=== PATIENT | male | born 1955 | race Caucasian/White ===

== ENCOUNTER 2016-10-16 19:48 | Emergency (ER) | payer OTHER ==
[~2016-10-16] VITALS: Ht 160 cm; Wt 54.4 kg
[~2016-10-16 19:48] MED LIST: ACET650T GT; BETHANECHOL GT; CALC GT; CALC1POW; DOCU-67 GT; LACT1TAB26 GT; LEVE1000 GT; MOM GT; OMEP20EC6 GT; SYN.1 GT; VIT D GT; VIT.C GT; ZOS3.375PM IV; [UNRECOGNIZED DRUG - CODE] GT; [UNRECOGNIZED DRUG - CODE] IV
[2016-10-16 19:53] VITALS: BP 163/110
--- NOTE | 2016-10-16 19:55 | NUR ---
PT BIB PARAMEDICS DUE TO TRACH COMING OUT AT [facility], PT GIVEN 100% FIO2 VIA BAG AND MASK BY PARAMEDICS. PT AWAKE, NEW PORTEX #[address] RAUSCH WITHOUT COMPLICATIONS, GOOD COLOR CHANGE NOTED ON EZ CAP, BILATERAL CLEAR BREATH SOUNDS AUSCULATED. PT GIVEN 100% FIO2 BY RT, PT SATURATION 99%, UNTIL PLACED ON VENT WITH FOLLOWING VENT SETTINGS AC 12, VT 450, FIO2 50%, PEEP 5. NO DISTRESS/SOB/WHEEZING NOTED. PT SUCTIONED SMALL AMT THIN PINK TINGED SECRETIONS. NO ADVERSE EFFECTS NOTED. VENT ALARMS ON AND AUDIBLE. VENT PLUGGED INTO RED ELECTRICAL OUTLET. AMBU BAG AT [facility]. WILL CONTINUE TO MONITOR.
--- NOTE | 2016-10-16 20:00 | NUR ---
BIBA C/O TRACHE CAME OUT, BLEEDING . CAME IN BAGGING, WITH G TUBE, GRAHAM CATHETER.
[2016-10-16 20:15] VITALS: BP 196/134
[2016-10-16] MEDS ORDERED: [UNRECOGNIZED DRUG - CODE] GT (20:23)
[2016-10-16] MEDS ORDERED: CRAN450C GT (20:23)
[2016-10-16] MEDS ORDERED: DOCU250S72 GT (20:23)
[2016-10-16 21:15] VITALS: BP 108/64
--- NOTE | 2016-10-16 21:19 | NUR ---
VENT CHECKED. PT AWAKE, BREATH SOUNDS CLEAR BILATERALLY, PT SUCTIONED FOR SM AMT PINK TINGED SECRETIONS. QUIANA RN AWARE OF SPUTUM SAMPLE OBTAINED. NO ADVERSE EFFECTS NOTED.
--- NOTE | 2016-10-16 22:15 | NUR ---
PT IN RESTING IN BED. NO SOB NOTED AT THIS TIME. WILL CONTINUE TO MONITOR.
--- NOTE | 2016-10-16 23:25 | NUR ---
Patient discharged with v/s stable. Written and verbal after care instructions given and explained. Patient alert, oriented and verbalized understanding of instructions. Ambulance [place] [facility] [facility] All questions addressed prior to discharge. ID band removed. Patient advised to follow up with PMD. NO Rx WERE given. Patient educated on indication of medication including possible reaction and side effects. Opportunity to ask questions provided and answered. REPORT GIVEN TO YAMILE MARTIN [facility]
[2016-10-16 23:26] VITALS: BP 111/82
== END 2016-10-16 23:26 ==
LOC: MED 19:48
DX: Z43.0 Encounter for attention to tracheostomy (principal); J45.909 Unspecified asthma, uncomplicated; Z86.73 Personal history of transient ischemic attack (TIA), and cerebral infarction without residual deficits
CPT/HCPCS: 31500; 71010; 99284; Q0092

== ENCOUNTER 2016-10-22 15:33 | Inpatient (IN) | payer OTHER ==
[2016-10-22] VITALS (7 sets, daily range): BP systolic 91–138; BP diastolic 55–79
[~2016-10-22] VITALS: Ht 149.9 cm; Wt 64.0 kg
[~2016-10-22 15:33] MED LIST changes: +CRAN450C GT; +DOCU250S72 GT; +[UNRECOGNIZED DRUG - CODE] GT
--- NOTE | 2016-10-22 15:34 | NUR ---
Patient was BIBA and taken to bed 04 via gurney per EMS.
--- NOTE | 2016-10-22 15:35 | NUR ---
RT at bedside. Dr. Moraes at bedside to evaluate patient.
--- NOTE | 2016-10-22 15:40 | NUR ---
FROM [facility]. TRYING TO CHANGE TRACH FROM [facility] AND HAD DIFFICULTY. BAGGING PATIENT FROM FACILITY TO ER.ERMD AT BEDSIDE.MONITORED.RT AT BEDSIDE BAGGING PATIENT. GTUBE,SUPRAPUBIC CATH. TO DRAINAGE.LOWER EXTREMIRIES CONTRACTED.HX: SEIZURE,CHRONIC RESP.,DOWN SYNDROME; HALF-WAY FACILITY TRIED TO CHANGE TRACH FROM PORTEX 7 TO SHILEY EXTRA LONG 6 BUT WAS UNABLE
[2016-10-22] MEDS ORDERED: LIDOCAINE/PRILOCAINE 2.5% 30 GM TUBE TP ONE (15:45)
--- NOTE | 2016-10-22 15:46 | NUR ---
XRAY AT BEDSIDE
--- NOTE | 2016-10-22 16:00 | NUR ---
DR SYLVESTER REPLACED TRACH WITH SHILEY EXTRA LONG SIZE 7.0, PLACED ON VENT BY RT JOSETTE, VENT SETTINGS AC RATE 12, TIDAL VOLUME 400 FI02 50%, PEEP +5, BLOOD GAS DRAWN BY RT, SPUTUM SPECIMEN SEND TO LAB
[2016-10-22] MEDS ORDERED: LIDOCAINE JELLY 2% 30 ML TUBE TP ONE (16:05)
--- NOTE | 2016-10-22 16:05 | NUR ---
RECEIVED PT BEING BMV GAUZE OVER STOMA BY EMS PER FACILITY RT CAHNGING TRACH UNABLE TO REINSERT NEW TRACH XLT SHILEY [address] BETHEA WITHOUT INCIDENT CXR ORDERED PT IS ALSO VENT DEPENDENT PER FACILITY PLACED ON CARESCAPE ON A/C 12 VT 400 PEEP 5 FIO2 50 ALARMS ARE ON FUNCTIONAL BMV HOB PTS TRACH SHILEY 7 XLT IS SECURE BS RHONCI COMMISSIONING MANAGER OBTAINED VIA TRACH PT IN HF QUIET
--- NOTE | 2016-10-22 16:08 | NUR ---
XRAY at bedside for a repeat.
[2016-10-22] MEDS ORDERED: [UNRECOGNIZED DRUG - CODE] GT (16:27)
[2016-10-22] MEDS ORDERED: OMEP20TC24 GT (16:27)
[2016-10-22] MEDS ORDERED: CALC650T90 GT (16:27)
[2016-10-22] MEDS ORDERED: SYN.075 GT (16:27)
[2016-10-22] MEDS ORDERED: KEP500L GT (16:27)
[2016-10-22 16:35] LABS: BLOOD GAS BASE EXCESS -0.1 mmol/L (-2.0-2.0); BLOOD GAS HCO3 25.6 mmol/L; BLOOD GAS PCO2 45.7 mmHg (20-50); BLOOD GAS PH 7.366 (7.35-7.45); BLOOD GAS PO2 160.4 mmHg
[2016-10-22 16:36] LABS: BLOOD GAS O2 SAT% 99.1 % (92.0-98.5)
--- NOTE | 2016-10-22 16:41 | NUR ---
ABG DRAWN ON RB WITHOUT INCIDENT AND RESULTS GIVEN TO DR. KEY AND FIO2 WAS CHANGED TO 30% BY RT Romeo GONZALEZ
[2016-10-22 16:44] LABS: BASOPHILS # (AUTO) 0.1 K/uL (0.00-0.22); EOSINOPHILS # (AUTO) 0.1 K/uL (0-0.4); EOSINOPHILS % (AUTO) 1.5 % (0.0-4.0); HEMATOCRIT 41.2 % (36-52); HEMOGLOBIN 13.6 g/dL (12.0-18.0); LYMPHOCYTES % (AUTO) 10.9 % (20.5-51.1); MEAN CORPUSCULAR HEMOGLOBIN 31 pg (27-31); MEAN CORPUSCULAR HGB CONC 33 g/dL (33-37); MEAN CORPUSCULAR VOLUME 94 fL (80-94); MONOCYTES # (AUTO) 0.5 K/uL (0.8-1.0); MONOCYTES % (AUTO) 5.3 % (1.7-9.3); NEUTROPHILS # (AUTO) 7.6 K/uL (1.8-7.7); NEUTROPHILS % (AUTO) 81.3 % (42.2-75.2); PLATELET COUNT (AUTO) 611 K/uL (140-450); RED BLOOD CELL COUNT(AUTO) 4.36 MIL/uL (4.20-6.10); RED CELL DISTRIBUTION WIDTH 14.2 % (11.6-13.7); WHITE BLOOD COUNT (AUTO) 9.3 K/uL (4.8-10.8)
[2016-10-22 16:55] LABS: ANION GAP 9.4 (8-16); CALCIUM 8.3 mg/dL (8.5-10.1); CARBON DIOXIDE 29.7 mmol/L (21-32); CREATININE 1.1 mg/dL (0.6-1.3); POTASSIUM 4.1 mmol/L (3.5-5.1)
[2016-10-22 17:00] LABS: BILIRUBIN,URINE NEGATIVE (NEGATIVE); BLOOD, URINE 1+ (NEGATIVE); LEUKOCYTE ESTERASE ,URINE 3+ (NEGATIVE); NITRITE, URINE POSITIVE (NEGATIVE); PROTEIN,URINE TRACE (NEGATIVE); UGLUCOSE NEGATIVE (NEGATIVE); UROBILINOGEN,URINE 0.2 EU/dL (0.2 - 1)
[2016-10-22 17:01] LABS: ALBUMIN 2.6 g/dL (3.4-5.0); TOTAL BILIRUBIN 0.3 mg/dL (0.0-1.0); TOTAL PROTEIN, SERUM 7.8 g/dL (6.4-8.2)
[2016-10-22 17:01] LABS: APPEARANCE,URINE CLOUDY (CLEAR); COLOR,URINE STRAW (YELLOW)
[2016-10-22 17:11] LABS: BACTERIA,URINE 3+ /HPF (None Seen); RBC,URINE NONE SEEN /HPF (0-5); SQUAMOUS EPITHELIAL CELL,UR RARE /LPF (0-3 (FEW)); WBC,URINE TOO MANY TO COUNT /HPF (0-5)
--- NOTE | 2016-10-22 17:16 | NUR ---
VENT CHECK BS RHONCI I\L LAVAGE AND SX LG BLOODY CXR DISCUSSED WITH DR KEY
--- NOTE | 2016-10-22 17:30 | NUR ---
PICTURES TAKEN OF RIGHT GROIN BY THOMAS ROSE
--- NOTE | 2016-10-22 17:35 | NUR ---
DR BLACKMAN AT BEDSIDE ASSESSING THE PT FOR ADMISSION
[2016-10-22] MEDS ORDERED: HYDROcodone/APAP 5/325 MG 1 TAB TAB GT PRN (18:05)
[2016-10-22] MEDS ORDERED: ACETAMINOPHEN 325 MG TAB GT PRN (18:05)
[2016-10-22] MEDS ORDERED: ONDANSETRON 4 MG/2 ML VIAL IVP PRN (18:05)
[2016-10-22 18:28] LABS: CHOL/HDL RATIO 5.1 (1-4.5)
[2016-10-22 18:38] LABS: FREE T4 (FREE THYROXINE) 1.46 ng/dL (0.76-1.46); THYROID STIMULATING HORMONE 1.49 uIU/mL (0.34-3.76)
--- NOTE | 2016-10-22 19:12 | NUR ---
REPORT GIVEN TO GRETA
--- NOTE | 2016-10-22 19:39 | NUR ---
RECEIVED PT STABLE ON VENT SUPPORT AT DOCUMENTED SETTINGS. TRANSFERRED PT TO ICU4 WITH BALA OVALLE. TOLERATED WELL. 7 SHILEY XLT SECURED/PATENT/MIDLINE. HME CHANGED. NO RESP DISTRESS OR SOB NOTED. BREATHE SOUNDS CLEAR BILATERALLY. BVM BEDSIDE, ALARMS AUDIBLE, VENT PLUGGED INTO RED OUTLET. WILL CONTINUE TO MONITOR.
--- NOTE | 2016-10-22 19:40 | NUR ---
RECEIVED PATIENT FROM ER VIA GURNEY. PATIENT IS TRACH TO VENT WITH SETTINGS OF FIO2 OF 30%, TIDAL VOLUME 400, A/C 12, AND PEEP OF 5. BREATH SOUNDS ARE CLEAR UPON AUSCULTATION. NO SIGNS OF RESPIRATORY DISTRESS OR SOB NOTED. BOWEL SOUNDS ARE PRESENT. THERE IS A G-TUBE IN PLACE. THERE IS A #20 IN THE LEFT HAND SALINE LOCK. THERE IS A SUPRAPUBIC CATHETER IN PLACE WITH MODERATE AMOUNT OF YELLOW CLOUDY URINE NOTED IN GRAHAM BAG DRAINING TO GRAVITY. ORIENTED PATIENT TO SURROUNDINGS AND EXPLAINED PLAN OF CARE TO INCLUDE VITALS Q2H, REPOSITIONING Q2H, AND SCHEDULED MEDICATION ADMINISTRATION. PATIENT HAS HX OF DOWN SYNDROME AND CVA. UNABLE TO ASSESS IF PATIENT COMPREHENDED TEACHING. REINFORCEMENT IS NEEDED. PATIENT REPOSITIONED FOR COMFORT TO OFFLOAD PRESSURE AREAS. HOB AT 30 DEGREES WITH BED IN LOW POSITION. WILL CONTINUE TO MONITOR PATIENT.
[2016-10-22] MEDS: NACL 0.9% 1,000 ML IV SCH (20:00)
--- NOTE | 2016-10-22 20:19 | NUR ---
#20 GAUGE IN LEFT HAND INFILTRATED. NEW IV INSERTED IN RIGHT FOREARM #20 BY CHARGE NURSE FRANCISCO OVALLE. SITE IS DRY, INTACT, AND PATENT. CONTINUE TO MONITOR.
--- NOTE | 2016-10-22 20:25 | NUR ---
DR. MARTINEZ ON UNIT TO SEE PATIENT.
[2016-10-22] MEDS: BETHANECHOL 5 MG TAB GT SCH (21:00)
--- NOTE | 2016-10-22 21:30 | NUR ---
RESPIRATORY THERAPIST VICKI AT BEDSIDE TO SUCTION PATIENT. MINIMAL AMOUNT OF SPUTUM NOTED. NO SIGNS OF SOB NOTED. HOB AT 30 DEGREES WITH BED IN LOW POSITION. CONTINUE TO MONITOR PATIENT.
[2016-10-22] MEDS ORDERED: PIPERACILLIN/TAZOBACTAM 3.375 GM VIAL IV ONE (22:25)
[2016-10-22] MEDS ORDERED: BETHANECHOL 25 MG TAB ONE (22:38)
[2016-10-22] MEDS ORDERED: levETIRAcetam 100 MG/ML ORASYR ONE (22:39)
[2016-10-22] MEDS: levETIRAcetam 100 MG/ML ORASYR GT SCH (22:48)
[2016-10-22] MEDS ORDERED: THEOPHYLLINE 80 MG/15 ML ONE (22:52)
--- NOTE | 2016-10-22 22:54 | NUR ---
ADMINISTERED SCHEDULED 2100 AT THIS TIME DUE TO MEDICATIONS ARE NOT AVAILABLE ON UNIT AND OMID ALAN RN WAS NOTIFIED. TOLERATED SCHEDULED MEDICATIONS. NO SIGNS OF SOB OR DISCOMFORT NOTED. HOB AT 30 DEGREES WITH BED IN LOW POSITION. CONTINUE TO MONITOR PATIENT.
[2016-10-22] MEDS: THEOPHYLLINE 80 MG/15 ML GT SCH (23:02)
[2016-10-23] VITALS (24 sets, daily range): BP systolic 90–128; BP diastolic 44–83
[2016-10-23] MEDS: PIPER/TAZO 3.375GM/D5W PREMIX 50 ML IV SCH ×5 (00:08→23:41)
--- NOTE | 2016-10-23 01:12 | NUR ---
PATIENT REPOSITIONED FOR COMFORT. NO S/S OF SOB OR RESPIRATORY DISTRESS NOTED. HOB AT 30 DEGREES WITH BED IN LOW POSITION. CONTINUE TO MONITOR.
[2016-10-23] MEDS: MORPHINE SULFATE 2 MG/ML SYR IVP PRN (01:14)
--- NOTE | 2016-10-23 02:48 | NUR ---
PATIENT REPOSITIONED FOR COMFORT. NO SIGNS OF RESPIRATORY DISTRESS NOTED. HOB AT 30 DEGREES WITH BED IN LOW POSITION. CONTINUE TO MONITOR PATIENT.
--- NOTE | 2016-10-23 04:54 | NUR ---
SCDS IN PLACE FOR VTE PROPHYLAXIS.
[2016-10-23 04:59] LABS: BASOPHILS # (AUTO) 0.2 K/uL (0.00-0.22); EOSINOPHILS # (AUTO) 0.1 K/uL (0-0.4); EOSINOPHILS % (AUTO) 1.4 % (0.0-4.0); HEMATOCRIT 38.6 % (36-52); HEMOGLOBIN 12.4 g/dL (12.0-18.0); LYMPHOCYTES # (AUTO) 1.7 K/uL (2.0-11.5); LYMPHOCYTES % (AUTO) 27.9 % (20.5-51.1); MEAN CORPUSCULAR HEMOGLOBIN 31 pg (27-31); MEAN CORPUSCULAR HGB CONC 32 g/dL (33-37); MEAN CORPUSCULAR VOLUME 96 fL (80-94); MONOCYTES # (AUTO) 0.5 K/uL (0.8-1.0); MONOCYTES % (AUTO) 7.7 % (1.7-9.3); NEUTROPHILS # (AUTO) 3.6 K/uL (1.8-7.7); PLATELET COUNT (AUTO) 549 K/uL (140-450); RED BLOOD CELL COUNT(AUTO) 4.02 MIL/uL (4.20-6.10); RED CELL DISTRIBUTION WIDTH 14.3 % (11.6-13.7); WHITE BLOOD COUNT (AUTO) 6.1 K/uL (4.8-10.8)
[2016-10-23] MEDS: LEVOTHYROXINE 0.075 MG TAB GT SCH (05:55)
[2016-10-23 06:12] LABS: ANION GAP 7.2 (8-16); CALCIUM 7.9 mg/dL (8.5-10.1); CARBON DIOXIDE 30.8 mmol/L (21-32)
[2016-10-23 06:14] LABS: MAGNESIUM 2.2 mg/dL (1.8-2.4); PHOSPHORUS 2.9 mg/dL (2.5-4.9)
[2016-10-23 06:15] LABS: INR 1.1 (0.8-1.2); PARTIAL THROMBOPLASTIN TIME 30.5 secs (22-35.6); PROTHROMBIN TIME 10.8 secs (10.8-13.4)
--- NOTE | 2016-10-23 06:16 | NUR ---
PATIENT RESTING IN BED. NO S/S OF RESPIRATORY DISTRESS NOTED. CONTINUE TO MONITOR.
--- NOTE | 2016-10-23 06:33 | NUR ---
[employer] PADDER BLINDSTITCH AT BEDSIDE FOR SCHEDULED CHEST XRAY.
--- NOTE | 2016-10-23 07:00 | NUR ---
RECEIVED PT ON CARESCAPE ON A\C 12 VT 400 PEEP 5 FIO2 30 ALARMS ARE ON AND FUNCTIONAL PT IN HF AWAKE PTS TRACH PIETRO 7 XLT IS SECURE BS RHOMAEI I\L LAVAGE AND SX SMOD YELLOW VENT PLUGGED INTO RED OULET BMV PLACED HOB Addendum: 10/23/16 at 1624 by Sharlene Arthur RT PT WEARING SOFT MITTENS
--- NOTE | 2016-10-23 07:20 | NUR ---
PATIENT IN STABLE CONDITION. ALL NEEDS ATTENDED TO DURING SHIFT. ENDORSED CONTINUITY OF CARE TO TRACEY RN.
--- NOTE | 2016-10-23 08:00 | NUR ---
INITIAL SHIFT ASSESSMENT DONE. DROWSY BUT EASILY AROUSABLE TO NAME CALLING. NOTED LUE MOVEMENT ONLY D/T HX OF CVA. PATIENT IS DOWN SYNDROME. NO SIGNS OF PAIN. ON VENTILATOR VIA TRACH, TOLERATING CURRENT SETTINGS WELL. O2 SAT 94-96%. SB/SR ON MONITOR. SBP IN 90-100'S. NO ECTOPY NOTED. GT PATENT, INTACT, CLAMPED AT THIS TIME, AND WAITING FOR THE TF BAG TO BE HANG. SUPRAPUBIC CATH PATENT, INTACT, AND DRAINING TO GRAVITY. HOB ELEVATED. UPDATED OF PLAN OF CARE. WILL CONTINUE TO MONITOR.
--- NOTE | 2016-10-23 08:34 | NUR ---
VENT CHECK BS CLEAR AIRWAY IS PATENT
[2016-10-23] MEDS ORDERED: PNEUMOCOCCAL VACCINE 23 MCG/0.5 ML VIAL IMVAC SCH (09:00)
--- NOTE | 2016-10-23 09:06 | NUR ---
PATIENT HAS BEEN SCREENED AND CATEGORIZED HIGH NUTRITION RISK. PATIENT WILL BE SEEN WITHIN 1-2 DAYS OF ADMISSION. 10/23/16-10/24/[address]
[2016-10-23] MEDS: LACTOBACILLUS RHAMNOSUS GG 1 EACH CAP GT SCH (09:08)
[2016-10-23] MEDS: PANTOPRAZOLE 40 MG INJ VIAL IVP SCH (09:09)
[2016-10-23] MEDS: THEOPHYLLINE 80 MG/15 ML GT SCH ×2 (09:21→20:33)
[2016-10-23] MEDS: BETHANECHOL 5 MG TAB GT SCH ×2 (09:21→20:32)
[2016-10-23] MEDS: levETIRAcetam 100 MG/ML ORASYR GT SCH ×2 (09:21→20:32)
--- NOTE | 2016-10-23 09:30 | NUR ---
BASKET MAKER IS IN THE ROOM TO DO 2D ECHO TO THE PATIENT.
--- NOTE | 2016-10-23 10:00 | NUR ---
TUBE FEEDING STARTED AT THIS TIME AT 20 ML/HR. WILL CONTINUE TO MONITOR.
--- NOTE | 2016-10-23 10:53 | NUR ---
VENTB CHECK BS RHONCI I\L LAVAGE AND SX MOD YELLOW
--- NOTE | 2016-10-23 12:00 | NUR ---
REASSESSMENT DONE. NEURO STATUS UNCHANGED. NO SIGNS OF PAIN OR AGITATION NOTED. TOLERATING CURRENT VENTILATOR SETTINGS WELL. O2 SAT 92-96%. SR ON MONITOR. SBP IN 100'S-110'S. NO ECTOPY NOTED. HOB ELEVATED. TOLERATING TUBE FEEDING WELL. RESIDUALS OF 10 ML ONLY. UPDATED OF PLAN OF CARE. WILL CONTINUE TO MONITOR.
--- NOTE | 2016-10-23 12:41 | NUR ---
VENT CHECK BS RHONCI I\L LAVAGE AND SX MOD YELLOW
[2016-10-23] MEDS: NACL 0.9% 1,000 ML IV SCH (12:50)
--- NOTE | 2016-10-23 14:00 | NUR ---
RESTING IN BED. NO SIGNS OF PAIN. OCCASIONAL AGITATION NOTED. TOLERATING VENTILATOR WELL. O2 SAT 93-96%. SR ON MONITOR. SBP IN 100'S-110'S. NO ECTOPY NOTED. HOB ELEVATED. WILL CONTINUE TO MONITOR.
--- NOTE | 2016-10-23 15:41 | NUR ---
10/23/16 RD INITIAL ASSESSMENT COMPLETED PLEASE REFER TO NUTRITION ASSESSMENT UNDER CARE ACTIVITY FOR ESTIMATED NUTRITIONAL NEEDS. RD RECOMMENDATIONS: 1. RECOMMEND NUTRITION SUPPORT CHANGE TO NUTREN PULMONARY AT 20 ML/HR AND INCREASE 10 ML Q6H TO GOAL OF 55 ML/HR --AT GOAL NUTRITION SUPPORT WILL PROVIDE 1320 ML TOTAL VOLUME, 1980 KCAL, 90 GM PROTEIN TO MEET 100% OF PT ESTIMATED KCAL NEEDS AND 98% OF PT ESTIMATED PROTEIN NEEDS 2. RD WILL F/U 2-3 DAYS; HIGH RISK. ECHO ANGULO RD
--- NOTE | 2016-10-23 15:44 | NUR ---
VENT CHECK BS RHONCI I\LL AVAGE AND SX COPIUOS YELLOW TRACH CARE GIVEN WITHOUT INCIDENT
--- NOTE | 2016-10-23 16:00 | NUR ---
REASSESSMENT DONE. NO SIGNS OF PAIN. NOTED NO MOVEMENT ON BLE. LUE STRONGER THAN RUE. OCCASIONAL AGITATION NOTED. TOLERATING CURRENT VENTILATOR SETTINGS WELL. O2 SAT 92-96%. SR ON MONITOR. SBP IN 100'S-110. NO ECTOPY NOTED. TOLERATING TF WELL. NO RESIDUALS NOTED. HAS BM AT THIS TIME, LARGE AMOUNT, SOFT, AND BROWN COLOR. GIVEN PERICARE AND LINENS ARE CHANGE. TOLERATED THE PROCEDURE WELL. HOB ELEVATED. UPDATED OF PLAN OF CARE. WILL CONTINUE TO MONITOR.
--- NOTE | 2016-10-23 16:20 | NUR ---
DR BERRY IS IN THE ROOM. UPDATED OF STATUS. NEW ORDERS RECEIVE.
--- NOTE | 2016-10-23 16:37 | NUR ---
VENT CHECK BS RHONCI I\L LAVAGE AND SX LG YELLOW DEAN WEBB RN TO RESTRAIN LEFT HAND IN MITTEN
--- NOTE | 2016-10-23 18:00 | NUR ---
RESTING IN BED. NO SIGNS OF PAIN. OCCASIONAL AGITATION NOTED. TOLERATING VENTILATOR WELL. O2 SAT 93-98%. SR ON MONITOR. SBP IN 100'S-110. NO ECTOPY NOTED. HOB ELEVATED. UPDATED OF PLAN OF CARE. WILL CONTINUE TO MONITOR.
--- NOTE | 2016-10-23 19:15 | NUR ---
REPORT GIVEN TO INCOMING REMOVABLE PROSTHODONTIST RN, RN CLARIZE.
--- NOTE | 2016-10-23 19:16 | NUR ---
RECEIVED REPORT FROM YAMILE WEBB. INITIAL ASSESSMENT COMPLETES. PT IS AWAKE, NON-VERBAL, AROUSABLE TO NAME. NO SIGNS OF DISTRESS AT THIS TIME. PT IS ON TRACH TO VENT FIO2 30%, TV 400, AC 12, PEEP 5.ATTACHED TO CHIEF CLINICAL OFFICER, PULSE OXIMETER. GT IN PLACE, ON CONTINUOUS GT FEEDING, NO RESIDUAL AT THIS TIME. IV ACCESS AT RIGHT FOREARM 20G, INFUSING WELL, LEFT HAND ON SALINE LOCK 20G, PATENT, INTACT AT THIS TIME. SUPRAPUBIC CATH IN PLACE, WITH SCDS IN PLACE. BED IN LOW POSITION, SAFETY MEASURE ENSURE. ISOLATION PRECAUTION MAINTAINED. WILL CONTINUE TO MONITOR.
[2016-10-23] MEDS: ALBUTEROL 0.083% 2.5 MG/3 ML NEBU INH SCH ×2 (19:44→23:16)
[2016-10-23] MEDS: IPRATROPIUM 0.02% 0.5 MG/2.5 ML NEBU INH SCH ×2 (19:44→23:16)
--- NOTE | 2016-10-23 19:45 | NUR ---
PT RECEIVED FROM [facility] ON NOTED VENT SETTINGS. PT AWAKE, HAS A SHILEY #[address] BREATH SOUNDS APPEAR CLEAR/DIMINISHED BILATERALLY, HHN TX GIVEN VIA INLINE. PT LAVAGED AND SUCTIONED SMALL AMOUNT THIN WHITE SECRETIONS. PT STOMA DRAINING CLEAR SECRETIONS, TRACH GAUZE CHANGED. NO ADVERSE EFFECTS NOTED. VENT ALARMS ON AND AUDIBLE. VENT PLUGGED INTO RED ELECTRICAL OUTLET. AMBU BAG ON FRONT OF VENT.
--- NOTE | 2016-10-23 21:29 | NUR ---
VENT CHECKED. PT AWAKE, BREATH SOUNDS COARSE/DIMINISHED. PT LAVAGED AND SUCTIONED SMALL AMOUNT THICK WHITE/CLEAR SECRETIONS VIA TRACH. NO ADVERSE EFFECTS NOTED.
--- NOTE | 2016-10-23 21:30 | NUR ---
PT TOLERATED MEDS WELL. WILL CONTINUE TO MONITOR, NO GASTRIC RESIDUAL AT THIS TIME. WILL CONTINUE TO MONITOR.
--- NOTE | 2016-10-23 23:27 | NUR ---
VENT CHECKED. PT AWAKE, BREATH SOUNDS COARSE BILATERALLY. HHN TX GIVEN VIA INLINE. PT SUCTIONED FOR MODERATE AMOUNT OF THIN CLEAR SECRETIONS AROUND STOMA, SMALL AMOUNT OF WHITE SECRETIONS VIA TRACH. NO ADVERSE EFFECTS NOTED.
[2016-10-24] VITALS (24 sets, daily range): BP systolic 59–133; BP diastolic 34–76
--- NOTE | 2016-10-24 00:48 | NUR ---
PT ASLEEP AT THIS TIME.
--- NOTE | 2016-10-24 01:19 | NUR ---
VENT CHECKED. PT AWAKE, SUCTIONED AROUND STOMA FOR MODERATE AMOUNT OF CLEAR SECRETIONS. NO ADVERSE EFFECTS NOTED.
[2016-10-24] MEDS: ALBUTEROL 0.083% 2.5 MG/3 ML NEBU INH SCH ×6 (03:35→23:06)
[2016-10-24] MEDS: IPRATROPIUM 0.02% 0.5 MG/2.5 ML NEBU INH SCH ×6 (03:35→23:06)
--- NOTE | 2016-10-24 03:36 | NUR ---
VENT CHECKED. PT AWAKE, BREATH SOUNDS COARSE/DIMINISHED, HHN TX GIVEN VIA INLINE. PT LAVAGED AND SUCTIONED SMALL AMOUNT WHITE/CLEAR SECRETIONS VIA TRACH AND CLEAR SECRETIONS AROUND STOMA. HME, TRACH GAUZE AND TRACH TIE CHANGED. NO ADVERSE EFFECTS NOTED.
[2016-10-24] MEDS: NACL 0.9% 1,000 ML IV SCH ×2 (04:24→22:00)
--- NOTE | 2016-10-24 04:50 | NUR ---
BASS SINGER AT BEDSIDE FOR BLOOD DRAW. PT TOLERATED WELL
[2016-10-24 05:05] LABS: BASOPHILS # (AUTO) 0.2 K/uL (0.00-0.22); EOSINOPHILS # (AUTO) 0.1 K/uL (0-0.4); EOSINOPHILS % (AUTO) 1.2 % (0.0-4.0); HEMATOCRIT 36.8 % (36-52); LYMPHOCYTES # (AUTO) 1.5 K/uL (2.0-11.5); LYMPHOCYTES % (AUTO) 20.5 % (20.5-51.1); MEAN CORPUSCULAR HEMOGLOBIN 31 pg (27-31); MEAN CORPUSCULAR HGB CONC 33 g/dL (33-37); MEAN CORPUSCULAR VOLUME 96 fL (80-94); MONOCYTES # (AUTO) 0.5 K/uL (0.8-1.0); MONOCYTES % (AUTO) 6.6 % (1.7-9.3); NEUTROPHILS # (AUTO) 4.8 K/uL (1.8-7.7); NEUTROPHILS % (AUTO) 68.7 % (42.2-75.2); PLATELET COUNT (AUTO) 541 K/uL (140-450); RED BLOOD CELL COUNT(AUTO) 3.85 MIL/uL (4.20-6.10); RED CELL DISTRIBUTION WIDTH 14.1 % (11.6-13.7); WHITE BLOOD COUNT (AUTO) 7.1 K/uL (4.8-10.8)
--- NOTE | 2016-10-24 05:29 | NUR ---
VENT CHECKED. PT AWAKE, TRACH GAUZE CHANGED. PT HAS A LARGE AMOUNT OF CLEAR SECRETIONS VIA STOMA, SMALL AMOUNT THIN CLEAR SECRETIONS VIA TRACH. NO ADVERSE EFFECTS NOTED.
[2016-10-24 05:33] LABS: ANION GAP 7.9 (8-16); CALCIUM 7.7 mg/dL (8.5-10.1); CARBON DIOXIDE 27.7 mmol/L (21-32); CREATININE 1.1 mg/dL (0.6-1.3); POTASSIUM 3.6 mmol/L (3.5-5.1)
--- NOTE | 2016-10-24 05:39 | NUR ---
MORNING CARE DONE. NO SIGNS OF DISTRESS/ NO SOB NOTED.
[2016-10-24 05:40] LABS: MAGNESIUM 2.1 mg/dL (1.8-2.4); PHOSPHORUS 2.4 mg/dL (2.5-4.9)
[2016-10-24] MEDS: PIPER/TAZO 3.375GM/D5W PREMIX 50 ML IV SCH ×4 (06:16→23:41)
[2016-10-24] MEDS: LEVOTHYROXINE 0.075 MG TAB GT SCH (06:16)
--- NOTE | 2016-10-24 06:46 | NUR ---
REC'D PT ON CARESCAPE VENT SETTINGS AC12 VT 400 PEEP 5 FIO2 30% ALARMS ON AND FUNCTIONING PROPERLY, AMBU BAG AT SIDE OF VENTILATOR AND VENTILATOR IS PLUGGED INTO RED OUTLET, I\L TX GIVEN WITH ALBUTEROL 2.5MG AND ATROVENT 0.4MG WITH NO ADVERSE REACTION POST TX B\S ARE COARSE BILATERALLY, SXN PT SMALL AMT OF THIN WHITE SECRETIONS, PT IS TRACH WITH SHILEY 7XLT AND SKIN INTEGRITY IS INTACT, CHANGED TRACH GAUZE PT IS RESTING WITH NO SIGNS OF DISTRESS NOTED AT THIS TIME
--- NOTE | 2016-10-24 06:48 | NUR ---
RT AT BEDSIDE
--- NOTE | 2016-10-24 07:17 | NUR ---
REPORT GIVEN TO MIGUE NURSETRACEY RN FOR CONTINUITY OF CARE.
--- NOTE | 2016-10-24 08:00 | NUR ---
INITIAL SHIFT ASSESSMENT DONE. DROWSY BUT EASILY AROUSABLE. DOES NOT FOLLOW COMMAND. ONLY BUE ARE MOVING, RUE IS WEAKER THAN THE LUE D/T HX OF CVA. NO SIGNS OF PAIN OR SEIZURE ACTIVITY NOTED. OCCASIONAL AGITATION NOTED. ON VENTILATOR VIA TRACH, TOLERATING CURRENT SETTINGS WELL. O2 SAT 93-99%. SR ON MONITOR. SBP IN 110'S. NO ECTOPY NOTED. ON TF VIA G-TUBE, TOLERATING WELL. RESIDUALS OF 10 ML ONLY. HOB ELEVATED. UPDATED OF PLAN OF CARE. WILL CONTINUE TO MONITOR.
--- NOTE | 2016-10-24 08:15 | NUR ---
DR ORTEGA IS IN THE ROOM. UPDATED OF STATUS. NO NEW ORDER RECEIVE.
--- NOTE | 2016-10-24 08:48 | NUR ---
VENT CHECK, NO SXN REQUIRED AIRWAY IS PATENT AND PT IS RESTING
[2016-10-24] MEDS: PANTOPRAZOLE 40 MG INJ VIAL IVP SCH (09:15)
[2016-10-24] MEDS: THEOPHYLLINE 80 MG/15 ML GT SCH ×2 (09:16→20:34)
[2016-10-24] MEDS: LACTOBACILLUS RHAMNOSUS GG 1 EACH CAP GT SCH (09:16)
[2016-10-24] MEDS: BETHANECHOL 5 MG TAB GT SCH ×2 (09:16→20:33)
[2016-10-24] MEDS: levETIRAcetam 100 MG/ML ORASYR GT SCH ×2 (09:17→20:34)
--- NOTE | 2016-10-24 10:00 | NUR ---
RESTING IN BED. NO SIGNS OF PAIN OR SEIZURE ACTIVITY NOTED. OCCASIONAL AGITATION NOTED. TOLERATING VENTILATOR WELL. O2 SAT 93-96%. SR ON MONITOR. SBP IN 90'S-110'S. NO ECTOPY NOTED. HOB ELEVATED. WILL CONTINUE TO MONITOR.
--- NOTE | 2016-10-24 10:43 | NUR ---
VENT CHECK, I\L TX GIVEN WITH ALBUTEROL 2.5MG AND ATROVENT 0.5MG WITH NO ADVERSE REACTION POST TX, B\S ARE COARSE BILATERALLY, SXN PT MODERATE AMT OF CLEAR SECRETIONS, PT IS RESTING
[2016-10-24] MEDS ORDERED: ACETAMINOPHEN 650 MG/20.3 ML UDC GT PRN (11:24)
--- NOTE | 2016-10-24 11:45 | NUR ---
DR BERRY IS IN THE ROOM. UPDATED OF STATUS. NO NEW ORDER RECEIVE.
--- NOTE | 2016-10-24 12:00 | NUR ---
REASSESSMENT DONE. NEURO STATUS UNCHANGED. NO SIGNS OF PAIN OR SEIZURE ACTIVITY. OCCASIONAL AGITATION NOTED. TOLERATING CURRENT VENTILATOR SETTINGS WELL. O2 SAT 96-98%. SR ON MONITOR. SBP IN 100'S-110'S. NO ECTOPY NOTED. TOLERATING TF WELL. RESIDUALS OF 10 ML ONLY. HOB ELEVATED. UPDATED OF PLAN OF CARE. WILL CONTINUE TO MONITOR.
--- NOTE | 2016-10-24 13:09 | NUR ---
VENT CHECK, SXN PT SMALL AMT OF WHITE SECRETIONS, AND AROUND STOMA WHITE SECRETIONS, PT IS RESTING WITH NO SIGNS OF DISTRESS NOTED AT THIS TIME
--- NOTE | 2016-10-24 14:00 | NUR ---
RESTING IN BED. NO SIGNS OF PAIN OR SEIZURE ACTIVITY. OCCASIONAL AGITATION NOTED. TOLERATING VENTILATOR WELL. O2 SAT 96-99%. SR ON MONITOR. SBP IN 90'S. NO ECTOPY NOTED. HOB ELEVATED. WILL CONTINUE TO MONITOR.
--- NOTE | 2016-10-24 15:21 | NUR ---
VENT CHECK, I\L TX GIVEN WITH ALBUTEROL 2.5MG AND ATROVENT 0.5MG WITH NO ADVERSE REACTION POST TX SNX PT MODERATE AMT OF THICK YELLOW SECRETIONS, CHANGED HME AND TRACH CARE DONE: CHANGED TRACH TIE AND GAUZE AND INNER CANNULA, PT IS RESTING
--- NOTE | 2016-10-24 16:00 | NUR ---
REASSESSMENT DONE. NEURO STATUS STILL THE SAME. NO SIGNS OF PAIN OR SEIZURE ACTIVITY. OCCASIONAL AGITATION NOTED. TOLERATING CURRENT VENTILATOR SETTINGS WELL. O2 SAT 94-99%. SR ON MONITOR. SBP IN 110'S-120'S. NO ECTOPY NOTED. HOB ELEVATED. TOLERATING TF WELL. RESIDUALS OF 15 ML. UPDATED OF PLAN OF CARE. WILL CONTINUE TO MONITOR.
--- NOTE | 2016-10-24 17:13 | NUR ---
VENT CHECK, NO SXN REQUIRED AIRWAY IS PATENT AND PT IS RESTING WITH NO SIGNS OF DISTRESS NOTED AT THIS TIME
--- NOTE | 2016-10-24 18:00 | NUR ---
HAS BM AT THIS TIME, MODERATE AMOUNT, PASTY, AND BROWN COLOR. GIVEN PERICARE AND LINENS ARE CHANGE. TOLERATED THE PROCEDURE WELL.
--- NOTE | 2016-10-24 19:05 | NUR ---
RCV'D PT ON CARESCAPE VENT SETTINGS ARE AC 12, 400, 5, 30%. PT HAS A TRACH SHILEY SIZE 7 XLT. SKIN IS PATETNT STOMA IS CLEAN TRACH IS SECURED AND IN PLACE. VENT IS CONNECTED TO RED OUTLET, ALARMS ARE AUDIBLE. AMBU BAG AT BEDSIDE. HHN GIVEN. SN'D SMALL AMT OF WHITE THICK SECRETIONS. WILL CONTINUE TO MONITOR.
--- NOTE | 2016-10-24 19:25 | NUR ---
REPORT GIVEN TO INCOMING INVENTORY AND PRICING ASSOCIATE RN, RN MORELIA.
--- NOTE | 2016-10-24 19:25 | NUR ---
RECEIVED REPORT FROM YAMILE WEBB. AT BEDSIDE. INITIAL ASSESSMENT COMPLETES. PT IS DROWSY, NON-VERBAL, EASY AROUSABLE TO NAME. NO S/S OF SOB/ DISTRESS, TRACH TO VENT FIO2 30%, TV 400, AC 12, PEEP 5. CLEAR LUNG SOUNDS, SR ON DUPLICATOR PUNCH SET UP OPERATOR. ABD SOFT WITH ACTIVE BOWL SOUNDS. GT IN PLACE, FEEDING WITH NUTREN PULMONARY AT 40ML/HR, 10ML RESIDUAL AT THIS TIME. IV ACCESS AT RIGHT FOREARM 20G, PATENT, SL. IV AT LEFT HAND 18GA RUNNING WITH NS AT 60ML/HR. SUPRAPUBIC CATH IN PLACE WITH CLEAR YELLOW URINE IN BAG. SEVERE WEAKNESS ON ALL EXTREMITIES, SCD'S IN PLACE. FLACC 0. AFEBRILE, SKIN IS WARM AND DRY TO TOUCH, AND INTACT. ISOLATION PRECAUTION MAINTAINED. FALL PRECAUTION AND ASPIRATION PRECAUTION IN PLACE, WILL CONTINUE TO MONITOR.
--- NOTE | 2016-10-24 20:00 | NUR ---
NO CHANGE OF CONDITION AT THIS TIME, POSITION CHANGED FOR OFF LOAD PRESSURE, ORAL CARE PROVIDED, VSS.
--- NOTE | 2016-10-24 21:00 | NUR ---
SCHEDULED MEDICATION GIVEN, PATIENT TOLERATED WELL.
--- NOTE | 2016-10-24 22:00 | NUR ---
NO CHANGE OF CONDITION AT THIS TIME, POSITION CHANGED FOR OFF LOAD PRESSURE.
--- NOTE | 2016-10-24 23:15 | NUR ---
HHN GIVEN. NO SOB/DISTRESS NOTED. PT IS AWAKE AND QUITE. TRACH IS IN PLACE AND SECURED. SN'D SMALL AMT OF THICK YELLOW SECREATIONS. SAT 96% HR 74. WILL CONTINUE TO MONITOR.
[2016-10-25] VITALS (19 sets, daily range): BP systolic 96–137; BP diastolic 32–66
--- NOTE | 2016-10-25 | NUR ---
RESIDUES CHECKED WITH 10ML, PT TOLERATED WELL ON THE GT FEEDING, INCREASED FEEDING RATE TO 55ML/HR. ORAL CARE PROVIDED, POSITION CHANGED FOR OFF LOAD PRESSURE.
--- NOTE | 2016-10-25 00:53 | NUR ---
PT PULLED OUT IV SITE ON LEFT HAND ACCIDENTALLY, NO BLEEDING NOTED, PT IS MORE AWAKE, TRIED TO PULL OUT THE TRACH, EDUCATED AND MEDICATED. WILL CONTINUE TO MONITOR.
[2016-10-25] MEDS: MORPHINE SULFATE 2 MG/ML SYR IVP PRN ×2 (00:56→21:20)
--- NOTE | 2016-10-25 02:00 | NUR ---
NO CHANGE OF CONDITION AT THIS TIME, POSITION CHANGED FOR OFF LOAD PRESSURE.
[2016-10-25] MEDS: IPRATROPIUM 0.02% 0.5 MG/2.5 ML NEBU INH SCH ×2 (03:06→07:16)
[2016-10-25] MEDS: ALBUTEROL 0.083% 2.5 MG/3 ML NEBU INH SCH ×2 (03:06→07:16)
--- NOTE | 2016-10-25 04:00 | NUR ---
AM CARE PROVIDED, ORAL CARE PROVIDED, POSITION CHANGED FOR OFF LOAD PRESSURE, VSS.
--- NOTE | 2016-10-25 05:30 | NUR ---
TRACH CARE DONE. CHANGED INNER CANNULA SHILEY 7 XLT, FILTER, ADAPTER, GUAZE, TRACH TIE, AND ANDREA. TRACH IS IN PLACE AND SECURED. SN'D SMALL AMT OF THICK YELLOW SECRETIONS. NO SOB/DISTRESS NOTED AT THIS TIME. RN MORELIA AT BEDSIDE. WILL CONTINUE TO MONITOR.
[2016-10-25 05:46] LABS: BASOPHILS # (AUTO) 0.1 K/uL (0.00-0.22); BASOPHILS % (AUTO) 1.2 % (0.0-2.0); EOSINOPHILS # (AUTO) 0.1 K/uL (0-0.4); EOSINOPHILS % (AUTO) 0.8 % (0.0-4.0); HEMOGLOBIN 12.2 g/dL (12.0-18.0); LYMPHOCYTES # (AUTO) 1.9 K/uL (2.0-11.5); LYMPHOCYTES % (AUTO) 26.5 % (20.5-51.1); MEAN CORPUSCULAR HEMOGLOBIN 32 pg (27-31); MEAN CORPUSCULAR HGB CONC 33 g/dL (33-37); MEAN CORPUSCULAR VOLUME 96 fL (80-94); MONOCYTES # (AUTO) 0.5 K/uL (0.8-1.0); MONOCYTES % (AUTO) 7.5 % (1.7-9.3); NEUTROPHILS # (AUTO) 4.4 K/uL (1.8-7.7); PLATELET COUNT (AUTO) 494 K/uL (140-450); RED BLOOD CELL COUNT(AUTO) 3.84 MIL/uL (4.20-6.10); RED CELL DISTRIBUTION WIDTH 14.7 % (11.6-13.7)
[2016-10-25] MEDS: PIPER/TAZO 3.375GM/D5W PREMIX 50 ML IV SCH ×4 (05:58→23:29)
[2016-10-25] MEDS: LEVOTHYROXINE 0.075 MG TAB GT SCH (05:58)
--- NOTE | 2016-10-25 06:00 | NUR ---
PT IS ASLEEP, VSS, NO CHANGE OF CONDITION AT THIS TIME, POSITION CHANGED FOR OFF LOAD PRESSURE.
[2016-10-25 06:31] LABS: ANION GAP 11.9 (8-16); CALCIUM 7.8 mg/dL (8.5-10.1); POTASSIUM 3.9 mmol/L (3.5-5.1)
[2016-10-25 06:33] LABS: MAGNESIUM 2.2 mg/dL (1.8-2.4); PHOSPHORUS 2.8 mg/dL (2.5-4.9)
--- NOTE | 2016-10-25 07:15 | NUR ---
REPORT GIVEN TO YAMILE KINSEY FOR CONTINUE OF CARE, NO CHANGE OF CONDITION AT THIS TIME, VSS.
--- NOTE | 2016-10-25 07:27 | NUR ---
RECEIVED PT STABLE ON VENT SUPPORT AT DOCUMENTED SETTINGS, TX GIVEN, TOLERATED WELL, NO RESP DISTRESS OR SOB NOTED, SHILEY 7 XLT SECURED/MIDLINE/PATENT, SXN'D CREAMY WHITE SECRETIONS, BS CLEAR POST SXN, BVM AT BEDSIDE, ALARMS AUDIBLE, VENT PLUGGED INTO RED OUTLET, WILL CONTINUE TO MONITOR.
--- NOTE | 2016-10-25 07:30 | NUR ---
RECEIVED PT FROM YAMILE THIBODEAUX. PT SEEN AT BEDSIDE. PT HAS HX OF DOWN SYNDROME AND CVA WITH RIGHT SIDED WEAKNESS; IS AWAKE AND NONVERBAL, BUT UNABLE TO FOLLOW COMMANDS. PT IS TRACH TO VENT WITH SETTINGS FIO2 30, AC 12, TV 400, AND PEEP 5. PT ON GROUP BURNER MACHINE RUNNING SR. RIGHT FA 20G IV RUNNING IVF AT THIS TIME. IV IS PATENT AND INTACT WITH VISIBLE BLOOD RETURN. PT HAS GT RUNNING TUBE FEEDING. PATENCY AUSCULTATED AND ASPIRATED. GT RESIDUAL 0 AT THIS TIME. PT HAS A SUPRAPUBIC CATHETER DRAINING CLEAR, YELLOW URINE. DRESSING AROUND CATHETER IS LEAKING WITH URINE. DRESSING CHANGED. PT HAS OLD PRESSURE ULCER ON RIGHT HIP AND COCCYX. OLD ULCER IS CLOSED. ORAL CARE GIVEN WITH VAP KIT. SAFETY MEASURES CHECKED, CALL LIGHT LEFT AT BEDSIDE. WILL CONTINUE TO MONITOR.
--- NOTE | 2016-10-25 08:15 | NUR ---
PT TURNED AND REPOSITIONED FOR COMFORT. PT HAD 1 SMALL BM. CLEANED AND BRYAN/CATH CARE GIVEN.
[2016-10-25] MEDS: LACTOBACILLUS RHAMNOSUS GG 1 EACH CAP GT SCH (08:42)
[2016-10-25] MEDS: BETHANECHOL 5 MG TAB GT SCH ×2 (08:42→21:19)
[2016-10-25] MEDS: THEOPHYLLINE 80 MG/15 ML GT SCH ×2 (08:42→21:19)
[2016-10-25] MEDS: levETIRAcetam 100 MG/ML ORASYR GT SCH ×2 (08:43→21:19)
[2016-10-25] MEDS: PANTOPRAZOLE 40 MG INJ VIAL IVP SCH (08:43)
--- NOTE | 2016-10-25 08:45 | NUR ---
MEDICATIONS ADMINISTERED WITH EDUCATION. PT UNABLE TO VERBALIZE UNDERSTANDING. WILL CONTINUE TO MONITOR.
--- NOTE | 2016-10-25 08:45 | NUR ---
URECHOLINE AND KEPPRA NON-ADMIN FOR 10/22 BECAUSE IT IS NOT DURING MY SHIFT.
--- NOTE | 2016-10-25 10:00 | NUR ---
PT TURNED AND REPOSITIONED FOR COMFORT. NO BM NOTED.
--- NOTE | 2016-10-25 10:23 | NUR ---
PREPPING PATIENT TO TRANSFER TO TELE UNIT. Addendum: 10/25/16 at 1155 by Renetta Rahman RN PER BEE RAISER, WILL NOT TRANSFER TO TELE AT THIS TIME. WILL WAIT.
[2016-10-25] MEDS ORDERED: ALBUTEROL SULFATE/IPRATROPIU 3 ML SOL IH PRN (10:40)
--- NOTE | 2016-10-25 11:54 | NUR ---
ROUTINE IV ABX GIVEN WITH EDUCATION. PT TURNED AND REPOSITIONED FOR COMFORT. WILL CONTINUE TO MONITOR.
[2016-10-25] MEDS: ALBUTEROL SULFATE/IPRATROPIU 3 ML SOL IH SCH ×2 (13:18→19:22)
--- NOTE | 2016-10-25 14:00 | NUR ---
PT TURNED AND REPOSITIONED FOR COMFORT. NO BM NOTED. PT SUCTIONED WITH MOD AMOUNT OF WHITE SECRETIONS. WILL CONTINUE TO MONITOR
--- NOTE | 2016-10-25 16:00 | NUR ---
PT TURNED AND REPOSITIONED FOR COMFORT. FEEDING TUBE CHANGED. WILL CONTINUE TO MONITOR.
[2016-10-25] MEDS: NACL 0.9% 1,000 ML IV SCH (16:27)
--- NOTE | 2016-10-25 18:00 | NUR ---
PT TURNED AND REPOSITIONED FOR COMFORT. WILL CONTINUE TO MONITOR.
--- NOTE | 2016-10-25 18:25 | NUR ---
ROUTINE ANTIBIOTIC GIVEN WITH EDUCATION. PT UNABLE TO VERBALIZE UNDERSTANDING. WILL CONTINUE TO MONITOR.
--- NOTE | 2016-10-25 19:15 | NUR ---
RECEIVED REPORT FROM DAY NURSE KINSEY RN AT PATIENT BEDSIDE. PT IS AWAKE, OPENS EYES SPONTANEOUSLY NONVERBAL DOES NOT FOLLOW COMMANDS. PT IS TRACH TO VENT WITH SETTINGS AT FIO2 30%, TV 400, AC 12, PEEP 5 WITH NO S/S OF ACUTE RESPIRATORY DISTRESS NOTED AT THIS TIME. COMPRESSION MOLDING MACHINE SETTER IS SHOWING SR AT THIS TIME. PT HAS RIGHT FA #20 RUNNING NS @60ML/HR. GOOD BLOOD RETURN NOTED. PT HAS G-TUBE IN PLACE RUNNING NUTREN PULMONARY AT 55ML/HR WITH 0 GASTRIC RESIDUAL ASPIRATED. PT HAS SUPRAPUBIC CATHETER IN PLACE DRAINING YELLOW URINE VIA GRAVITY AT BEDSIDE. PT HAS OLD CLOSED SCARS NOTED ON SACRAL AND RIGHT HIP. BED IN LOW POSITION. HOB UP . NO SIGNS OF DISCOMFORT. WILL CONTINUE TO MONITOR.
--- NOTE | 2016-10-25 19:17 | NUR ---
REPORT GIVEN TO YAMILE ARAYA.
--- NOTE | 2016-10-25 19:23 | NUR ---
PT RECEIVED FROM [facility] ON NOTED VENT SETTINGS. PT AWAKE, HAS A #7 XLT SHILEY TRACH SECURE IN PLACE. BREATH SOUNDS APPEAR CLEAR BILATERALLY. HHN TX GIVEN INLINE. PT LAVAGED AND SUCTIONED SMALL AMOUNT THIN WHITE SECRETIONS. NO ADVERSE EFFECTS NOTED. VENT ALARMS ON AND AUDIBLE. VENT PLUGGED INTO RED ELECTRICAL OUTLET. AMBU BAG ON FRONT OF BED.
--- NOTE | 2016-10-25 21:15 | NUR ---
PT FLACC SCORE OF 8 AT THIS TIME. WILL MEDICATE ORDERED PRN
--- NOTE | 2016-10-25 21:16 | NUR ---
VENT CHECKED. PT AWAKE, NO DISTRESS/SOB NOTED AT THIS TIME. WILL CONTINUE TO MONITOR.
[2016-10-25] MEDS ORDERED: ALBUMIN HUMAN 25% 100 ML IV ONE (22:50)
[2016-10-26] VITALS (14 sets, daily range): BP systolic 0–154; BP diastolic 0–78
--- NOTE | 2016-10-26 00:10 | NUR ---
PT TURNED, REPOSITIONED, VAP ORAL CARE DONE. NO S/S OF RESP DISTRESS AT THIS TIME. WILL CONTINUE TO MONITOR.
[2016-10-26] MEDS: ALBUTEROL SULFATE/IPRATROPIU 3 ML SOL IH SCH ×4 (01:24→18:58)
--- NOTE | 2016-10-26 01:25 | NUR ---
VENT CHECKED. PT AWAKE, BREATH SOUNDS COARSE DIMINISHED, HHN TX GIVEN VIA INLINE. PT LAVAGED AND SUCTIONED SMALL AMOUNT THICK PALE YELLOW SECRETIONS. NO ADVERSE EFFECTS NOTED.
--- NOTE | 2016-10-26 03:08 | NUR ---
PT SLEEPING IN BED. CONTACT PRECAUTIONS STILL MAINTAINED. NO SOB NOTED AT THIS TIME. WILL CONTINUE TO CLOSELY MONITOR.
--- NOTE | 2016-10-26 04:43 | NUR ---
MORNING CARE RENDERED. PT CLEANED, LINEN CHANGED. NO SOB NOTED. WILL CONTINUE TO CLOSELY MONITOR.
[2016-10-26 04:52] LABS: BASOPHILS # (AUTO) 0.1 K/uL (0.00-0.22); BASOPHILS % (AUTO) 1.2 % (0.0-2.0); EOSINOPHILS # (AUTO) 0.1 K/uL (0-0.4); EOSINOPHILS % (AUTO) 1.7 % (0.0-4.0); HEMATOCRIT 36.7 % (36-52); HEMOGLOBIN 12.2 g/dL (12.0-18.0); LYMPHOCYTES # (AUTO) 1.7 K/uL (2.0-11.5); MEAN CORPUSCULAR HEMOGLOBIN 32 pg (27-31); MEAN CORPUSCULAR HGB CONC 33 g/dL (33-37); MEAN CORPUSCULAR VOLUME 95 fL (80-94); MONOCYTES # (AUTO) 0.4 K/uL (0.8-1.0); MONOCYTES % (AUTO) 6.4 % (1.7-9.3); NEUTROPHILS # (AUTO) 4.5 K/uL (1.8-7.7); NEUTROPHILS % (AUTO) 65.7 % (42.2-75.2); PLATELET COUNT (AUTO) 472 K/uL (140-450); RED BLOOD CELL COUNT(AUTO) 3.85 MIL/uL (4.20-6.10); RED CELL DISTRIBUTION WIDTH 14.4 % (11.6-13.7); WHITE BLOOD COUNT (AUTO) 6.8 K/uL (4.8-10.8)
[2016-10-26 05:18] LABS: ANION GAP 8.5 (8-16); CARBON DIOXIDE 26.1 mmol/L (21-32); POTASSIUM 3.6 mmol/L (3.5-5.1)
[2016-10-26] MEDS: NACL 0.9% 1,000 ML IV SCH ×2 (05:21→22:01)
--- NOTE | 2016-10-26 05:30 | NUR ---
VENT CHECKED. PT AWAKE, NO DISTRESS/SOB NOTED AT THIS TIME.
--- NOTE | 2016-10-26 06:05 | NUR ---
PT HAVING CHEST X-RAY DONE AT BEDSIDE.
[2016-10-26] MEDS: PIPER/TAZO 3.375GM/D5W PREMIX 50 ML IV SCH ×4 (06:18→23:17)
[2016-10-26] MEDS: LEVOTHYROXINE 0.075 MG TAB GT SCH (06:18)
--- NOTE | 2016-10-26 07:06 | NUR ---
ENDORSED PLAN OF CARE TO DAY NURSE YAMILE MAX FOR CONTINUITY OF CARE. PT IS STABLE AT THIS TIME
--- NOTE | 2016-10-26 07:10 | NUR ---
REC'D REPORT AT BEDSIDE FROM PM SHIFT RN. PT OPENS EYES SPONTANEOUSLY, MENTALLY CHALLENGED. PT IS ON TRACH TO VENT: AC Mode-Fi02: 30%, TIDAL VOLUME:400, RR:12, PEEP:5. FLACC 0. V/S STABLE. SISSY WARM TO TOUCH. RHONCHI COARSE HEARD UPON AUSCULTATION. PT IS ON NUTREN PULMONARY @ 55 ML/HR. ACTIVE BOWELS SOUNDS IN ALL 4 QUADRANTS. RIGHT FA #20g IV ACCESS W/IVF INFUSING @ 60 ML/HR. SUPRAPUBIC CATH IN PLACE W/ YELLOW COLORED DRAINAGE TO GRAVITY. OLD SACROCOCCYGEAL SCAR NOTED. BED IN LOW POSITION. SAFETY MEASURES AND CONTACT PRECAUTION MAINTAINED. CALL LIGHT WITHIN REACH. WILL CONTINUE TO MONITOR.
--- NOTE | 2016-10-26 07:54 | NUR ---
RECEIVED ON N-1-1SCAPE R860 VENTILATOR PLUGGED INTO RED OUTLET TOLERATING WELL WITHOUT ADVERSE REACTIONS NOTED TO A JENALEY #7 XLT AIRWAY SECURED WITH A JOSE TRACH TUBE RODRIGUEZ CUFF PRESSURE CHECKED FOR MOV AMBU BAG NOTED AT HOB LOC AWAKE AND RESPONSIVE BREATH SOUNDS COARSE RHONCHI BILATERAL GOOD CHEST RISE DEEP TRACHEAL SUCTION FOR LARGE THIN YELLOW SECRETIONS AIRWAY PATENT
[2016-10-26] MEDS: levETIRAcetam 100 MG/ML ORASYR GT SCH ×2 (09:10→20:55)
[2016-10-26] MEDS: LACTOBACILLUS RHAMNOSUS GG 1 EACH CAP GT SCH (09:10)
[2016-10-26] MEDS: PANTOPRAZOLE 40 MG INJ VIAL IVP SCH (09:11)
[2016-10-26] MEDS: THEOPHYLLINE 80 MG/15 ML GT SCH ×2 (09:11→20:55)
[2016-10-26] MEDS: BETHANECHOL 5 MG TAB GT SCH ×2 (09:11→20:56)
--- NOTE | 2016-10-26 09:12 | NUR ---
SCHEDULED MEDS GIVEN VIA G TUBE BY GRAVITY AND TOLERATED WELL BY PT. HOB ELEVATED TO 30 DEGREES FOR ASPIRATION PRECAUTION. CALL LIGHT WITHIN REACH. SAFETY MEASURES AND CONTACT PRECAUTION MAINTAINED. WILL CONTINUE TO MONITOR.
--- NOTE | 2016-10-26 10:15 | NUR ---
ASLEEP RESTING WELL WITHOUT PULMONARY DISTRESS NOTED BREATH SOUNDS COARSE RHONCHI BILATERAL GOOD CHEST RISE HYPER OXYGENATION USE 100% PRE AND POST SUCTIONING DEEP TRACHEAL SUCTION FOR LARGE THIN YELLOW SECRETIONS AIRWAY AIRWAY PATENT
--- NOTE | 2016-10-26 10:35 | NUR ---
PATIENT OFF VENTILATOR AMBU BAG TO TRACH WITH SUPPLEMENTAL OXYGEN AT 15 LPM BAGGING BY INSURANCE LICENSING SUPERVISOR/RHONA TRANSFERRED VENTILATOR TO [facility]
--- NOTE | 2016-10-26 10:40 | NUR ---
[facility] VIA E-TANK AMBU BAG DEPRESSION EVERY 6 SECONDS SATURATION 100% HR 62 TOLERATED TRANSFER WELL WITHOUT INCIDENT
--- NOTE | 2016-10-26 11:00 | NUR ---
TRANSFERRED PT TO [facility] RM 123 IN STABLE CONDITION. REPORT GIVEN TO JACLYN AT BEDSIDE.
--- NOTE | 2016-10-26 11:00 | NUR ---
PATIENT ARRIVED FROM ICU. PATIENT TRACH TO VENT WITH FIO2 AT 30% TIDAL VOLUME AT 400 AC 12 AND PEEP AT 5. O2 SAT AT 94%. SUPRAPUBIC CATH IN PLACE, DRAINING CLEAR YELLOW URINE. G-TUBE IN PLACE. IV LINE NOTED TO THE RIGHT FOREARM. PATIENT PLACED ON TELE MONITORING. BED LOWERED WITH CALL LIGHT WITHIN REACH. WILL CONTINUE TO MONITOR
--- NOTE | 2016-10-26 11:54 | NUR ---
AWAKE STABLE NO EVIDENCE OF RESPIRATORY DISTRESS NOTED VENTILATOR ON AND FUNCTIONING WELL BREATH SOUNDS COARSE RHONCHI BILATERAL HYPER OXYGENATION PRE AND POST SUCTIONING DEEP TRACHEAL SUCTION FOR MODERATE THIN PALE YELLOW SECRETIONS PLACED CONTINUOS PULSE OXIMETRY AT BEDSIDE ON AND FUNCTIONING WELL LOW SATURATION ALARM SET AT 92%
--- NOTE | 2016-10-26 14:00 | NUR ---
PATIENT IN BED WITH CONTINUOUS O2 MONITORING. O2 SAT AT 98%. PATIENT SUCTIONED. SCANT AMOUNT OF WHITE CREAMY PHLEGM NOTED
--- NOTE | 2016-10-26 14:01 | NUR ---
ASLEEP RESTING COMFORTABLY NO EVIDENCE OF RESPIRATORY DISTRESS NOTED BREATH SOUNDS CLEAR BILATERAL WITH GOOD CHEST RISE AIRWAY PATENT
--- NOTE | 2016-10-26 14:45 | NUR ---
PATIENT REPOSITIONED. LINENS CHANGED. PATIENT TOLERATED WELL. NO S/S OF DISTRESS NOTED
--- NOTE | 2016-10-26 15:05 | NUR ---
AWAKE STABLE NO PULMONARY DISTRESS NOTED BREATH SOUNDS RHONCHI BILATERAL WITH GODD CHEST RISE PRE AND POST OXYGENATION DEEP TRACHEAL SUCTION FOR MODERATE THIN PALE YELLOW SECRETIONS AIRWAY PATENT
--- NOTE | 2016-10-26 15:05 | NUR ---
10/26/16 RD FOLLOW UP ASSESSMENT COMPLETED PLEASE REFER TO NUTRITION ASSESSMENT UNDER CARE ACTIVITY FOR ESTIMATED NUTRITIONAL NEEDS. RD RECOMMENDATIONS: 1. CONTINUE NUTREN PULMONARY AT GOAL OF 55 ML/HR VIA GTUBE TOLERATED --ADEQUATE TO MEET 100% OF PT ESTIMATED KCAL NEEDS AND 98% OF PT ESTIMATED PROTEIN NEEDS 2. RD WILL F/U 2-3 DAYS; HIGH RISK. ECHO ANGULO, RD
--- NOTE | 2016-10-26 16:00 | NUR ---
DRESSING ON THE SUPRAPUBIC CATHETER CHANGED. PATIENT REPOSITIONED. PT TOLERATED WELL
--- NOTE | 2016-10-26 17:39 | NUR ---
AWAKE STABLE NO EVIDENCE OF RESPIRATORY DISTRESS NOTED BREATH SOUNDS DIFFUSED RHONCHI BILATERAL HYPER OXYGENATION PRE AND POST SUCTIONING DEEP TRACHEAL SUCTIONING FOR SMALL THIN PALE YELLOW SECRETIONS AIRWAY PATENT
--- NOTE | 2016-10-26 19:06 | NUR ---
RECEIVED PT STABLE ON VENT SUPPORT AT DOCUMENTED SETTINGS, SXN'D SMALL YELLOW THICK SECRETIONS, TX GIVEN, TOLERATED WELL, NO RESP DISTRESS OR SOB NOTED, BS CLEAR BILATERALLY, SHILEY 7 XLT SECURED/PATENT/MIDLINE, CONT PULSE OX ON, ALARMS AUDIBLE, BVM BEDSIDE, VENT PLUGGED INTO RED OUTLET, WILL CONTINUE TO MONITOR.
--- NOTE | 2016-10-26 19:30 | NUR ---
PATIENT REPORT GIVEN AT BEDSIDE. ENDORSED PATIENT IN STABLE CONDITION
--- NOTE | 2016-10-26 19:41 | NUR ---
RECEIVED REPORT FROM ALYSSA OVALLE. PATIENT IS ASLEEP IN BED, BUT OPENS EYES SPONTANEOUSLY. PATIENT DOES NOT FOLLOW SIMPLE COMMANDS. REINFORCEMENT IS NEEDED. PATIENT IS TRACH TO VENT WITH SETTINGS OF FIO2 30%, TIDAL VOLUME 400, A/C 12, AND PEEP 5. BREATH SOUNDS ARE CLEAR UPON AUSCULTATION AND BOWEL SOUNDS ARE ACTIVE. THERE IS A G-TUBE PRESENT. PATIENT IS RECEIVING NUTREN PULMONARY AT 30 ML/HR. PATIENT TOLERATING FEEDING WELL WITH NO RESIDUAL NOTED. THERE IS A SUPRAPUBIC CATHETER PRESENT DRAINING TO GRAVITY. SCDS ARE IN PLACE FOR VTE PROTOCOL. THERE IS A #20 IN THE RIGHT FOREARM RECEIVING NORMAL SALINE AT 60 ML/HR. SITE IS DRY, INTACT, AND ASYMPTOMATIC. VAP ORAL CARE RENDERED. VITALS ARE WNL AND FLACC 0. HOB AT 30 DEGREES WITH BED IN LOW POSITION. WILL CONTINUE TO MONITOR PATIENT.
--- NOTE | 2016-10-26 21:11 | NUR ---
PATIENT TOLERATED SCHEDULED MEDICATIONS. NO SIGNS OF RESPIRATORY DISTRESS. FLACC 0. HOB AT 30 DEGREES WITH BED IN LOW POSITION. CONTINUE TO MONITOR PATIENT.
--- NOTE | 2016-10-26 23:24 | NUR ---
VAP ORAL CARE RENDERED. NO SIGNS OF SOB NOTED. HOB AT 30 DEGREES WITH BED IN LOW POSITION. CONTINUE TO MONITOR PATIENT.
--- NOTE | 2016-10-26 23:43 | NUR ---
CHECK RESIDUAL OF G-TUBE FEEDING. 5ML NOTED. PATIENT TOLERATING FEEDING WELL. CHANGED TUBE FEEDING BAG AND LINE. LINE IS INTACT AND PATENT. CONTINUE TO MONITOR PATIENT.
[2016-10-27] VITALS (7 sets, daily range): BP systolic 93–141; BP diastolic 43–75
[2016-10-27] MEDS: ALBUTEROL SULFATE/IPRATROPIU 3 ML SOL IH SCH ×4 (01:25→20:15)
--- NOTE | 2016-10-27 02:09 | NUR ---
ROUNDED ON PATIENT. PATIENT SLEEPING IN BED. NO S/S OF SOB OR RESPIRATORY DISTRESS NOTED. HOB AT 30 DEGREES WITH BED IN LOW POSITION. WILL CONTINUE TO MONITOR PATIENT.
--- NOTE | 2016-10-27 03:30 | NUR ---
VITALS ARE STABLE. VAP ORAL CARE RENDERED. NO SIGNS OF RESPIRATORY DISTRESS NOTED. HOB AT 30 DEGREES WITH BED IN LOW POSITION. CONTINUE TO MONITOR.
--- NOTE | 2016-10-27 04:05 | NUR ---
MORNING CARE RENDERED BY JORGE ATKINS AND JORGE HARE. PATIENT REPOSITIONED FOR COMFORT. HOB AT 30 DEGREES WITH BED IN LOW POSITION. CONTINUE TO MONITOR.
[2016-10-27] MEDS: PIPER/TAZO 3.375GM/D5W PREMIX 50 ML IV SCH ×3 (06:16→17:16)
[2016-10-27] MEDS: LEVOTHYROXINE 0.075 MG TAB GT SCH (06:17)
--- NOTE | 2016-10-27 06:19 | NUR ---
PATIENT SLEEPING IN BED. ADMINISTERED DUE MEDICATIONS. TOLERATED WELL. NO SIGNS OF SOB OR ACUTE RESPIRATORY DISTRESS NOTED. HOB AT 30 DEGREES WITH BED IN LOW POSITION. WILL CONTINUE TO MONITOR PATIENT.
--- NOTE | 2016-10-27 07:07 | NUR ---
RECEIVED TRACH PT SHILEY 7 XLT ON VENT. SETTINGS AC 12, VT 400, PEEP 5 AND FIO2 30%. PT IS NOT SOB AND NOT IN RESPIRATORY DISTRESS AT THIS TIME. PT SUCTIONED OBTAINED SMALL AMOUNT OF THICK YELLOW SECRETIONS, AIRWAY IS PATENT, TRACH SECURE. VENT ALARMS ARE ON AND FUNCTIONING. VENT IS PLUGGED INTO RED OUTLET WITH AMBU BAG PRESENT AT BEDSIDE. WILL CONTINUE TO MONITOR.
--- NOTE | 2016-10-27 07:13 | NUR ---
PATIENT ASLEEP IN BED. NO SIGNS OF RESPIRATORY DISTRESS NOTED. ALL NEEDS ATTENDED TO DURING SHIFT. ENDORSED CONTINUITY OF CARE TO MARIO OVALLE.
--- NOTE | 2016-10-27 07:15 | NUR ---
RECEIVED REPORT FROM YAMILE SOLO. PT IS NONVERBAL. PT IS TRACH TO VENT. FIO2: 30%, TV: 400, AC: 12, PEEP: 5. IV TO RIGHT FOREARM #20 PATENT AND INTACT. SKIN IS INTACT. SOFT MITTENS IN PLACE X2. G TUBE IN PLACE TO TUBE FEEDING. SUPRAPUBIC CATHETER IN PLACE DRAINING TO GRAVITY DRAINAGE BAG. SAFETY PRECAUTIONS IN PLACE WITH BED IN LOWEST POSITION AND SIDE RAILS UP X2. CALL LIGHT WITHIN REACH. WILL CONTINUE TO MONITOR.
[2016-10-27] MEDS: levETIRAcetam 100 MG/ML ORASYR GT SCH ×2 (08:45→21:10)
[2016-10-27] MEDS: PANTOPRAZOLE 40 MG INJ VIAL IVP SCH (08:45)
[2016-10-27] MEDS: LACTOBACILLUS RHAMNOSUS GG 1 EACH CAP GT SCH (08:46)
[2016-10-27] MEDS: THEOPHYLLINE 80 MG/15 ML GT SCH ×2 (08:46→21:10)
[2016-10-27] MEDS: BETHANECHOL 5 MG TAB GT SCH ×2 (08:46→21:10)
[2016-10-27] MEDS: NACL 0.9% 1,000 ML IV SCH ×2 (08:46→14:22)
--- NOTE | 2016-10-27 08:58 | NUR ---
CHECKED TUBE FEEDING RESIDUAL: NONE NOTED. ADMINISTERED MEDICATION ORDERED. PT TOLERATED WELL.
--- NOTE | 2016-10-27 09:53 | NUR ---
DR. ACUNA IN TO SEE PT. WILL FOLLOW UP ON ORDERS.
--- NOTE | 2016-10-27 10:42 | NUR ---
DR. BERRY IN TO SEE PT. WILL FOLLOW UP ON ORDERS.
--- NOTE | 2016-10-27 11:19 | NUR ---
PT TOLERATED MEDS WELL.
--- NOTE | 2016-10-27 11:25 | NUR ---
VENT CHECK COMPLETED. PT SUCTIONED OBTAINED MODERATE AMOUNT OF THICK PALE YELLOW/WHITE SECRETIONS. AIRWAY IS PATENT, CONFIRMED SECURITY OF TRACH. WILL CONTINUE TO MONITOR.
--- NOTE | 2016-10-27 11:58 | NUR ---
Social Service Note: I faxed patient's clinical information to [facility] .
--- NOTE | 2016-10-27 12:21 | NUR ---
Social Service Note: Per Lora from [facility] , patient can return to room 2B upon discharge, Juanpablo seals. Addendum: 10/27/16 at 1414 by Blaire TORRES Social Service Note: Correction to above note: Per Lora from [facility] , patient can return to room 2B tomorrow, Juanpablo seals. Addendum: 10/27/16 at 1420 by Blaire TORRES Per Lora from [facility] , patient can return to room 2B tomorrow, Juanpablo seals. Per TagmanManager Phelps she informed Charge Nurse Gissel of above information.
[2016-10-27] MEDS ORDERED: PIPER/TAZO 2.25GM/D5W PREMIX 50 ML IV SCH (14:20)
--- NOTE | 2016-10-27 14:24 | NUR ---
CHECKED ON PT. NO SIGNS OF ACUTE DISTRESS AT THIS TIME. FLACC 0. WILL CONTINUE TO MONITOR.
--- NOTE | 2016-10-27 17:16 | NUR ---
PT TOLERATED MEDS WELL.
--- NOTE | 2016-10-27 17:30 | NUR ---
CHANGED DRESSING SURROUNDING G-TUBE SITE IT WAS SOILED WITH PURULENT DRAINAGE, FOUL ODOR. PT TOLERATED WELL.
--- NOTE | 2016-10-27 17:53 | NUR ---
PT REMAINS ON DOCUMENTED SETTINGS NO CHANGES MADE. VENT ALARMS REMAIN ON AND FUNCTIONING. PT SUCTIONED OBTAINED SMALL AMOUNT OF WHITE SECRETIONS. AIRWAY IS PATENT, TRACH SECURE.
--- NOTE | 2016-10-27 18:09 | NUR ---
CHECKED ON PT. NO SIGNS OF ACUTE DISTRESS AT THIS TIME. FLACC 0. CALL LIGHT WITHIN REACH. WILL CONTINUE TO MONITOR.
--- NOTE | 2016-10-27 19:17 | NUR ---
ENDORSED CARE TO Chloe SHAH PT IN STABLE CONDITION.
--- NOTE | 2016-10-27 19:20 | NUR ---
RECEIVED REPORT FROM DAY NURSEMARIO. PATIENT RESTING IN BED. NO RESPIRATORY DISTRESS, SOB, OR DISCOMFORT. INITIAL ASSESSMENT AND BODY CHECK DONE. PATIENT HAS TRACH TO VENT IN PLACE; FIO2 30%, PEEP 5, RR 12, TV 400. PATIENT IS NON-VERBAL, OPENS EYES SPONTANEOUSLY. PATIENT HAS IV ACCESS TO RIGHT FOREARM 20G, PATENT. SKIN IS INTACT; OLD SCARS TO RIGHT HIP AND SACRAL AREA NOTED. PATIENT HAS G-TUBE IN PLACE INFUSING NUTREN PULMONARY AT 30ML/HR, PATIENT TOLERATING WELL; 5ML RESIDUAL NOTED. PATIENT HAS SUPRAPUBIC CATHETER IN PLACE DRAINING CLEAR YELLOW. DISCUSSED PLAN OF CARE, MEDICATION REGIMENT AND PAIN MANAGEMENT WITH PATIENT. PLACED PATIENT ON SAFETY/FALL/PRESSURE ULCER/ASPIRATION PRECAUTIONS. CALL LIGHT LEFT WITHIN REACH, WILL CONTINUE TO MONITOR.
--- NOTE | 2016-10-27 20:15 | NUR ---
RECEIVED ON A Living Map CompanySCAPE R860 VENTILATOR PLUGGED ONTO RED OUTLET TOLERATING WELL WITHOUT INCIDENT TO A SHILEY 7 XLT AIRWAY SECURED WITH A JOSE TRACH TIE CUFF PRESSURE CHECKED FOR MOV AMBU BAG NOTED AT HOB LOC AWAKE BREATH SOUNDS DIFFUSED RHONCHI BILATERAL WITH GOOD CHEST RISE PRE AND POST OXYGENATION FOR SUCTIONING DEEP TRACHEAL SUCTION FOR SMALL THI YELLOW SECRETIONS AIRWAY PATENT PULSE OXIMETER AT BEDSIDE ON AND FUNCTIONING WELL LOW SATURATION ALARM SET AT 92%
--- NOTE | 2016-10-27 21:45 | NUR ---
ASLEEP RESTING COMFORTABLY NO RESPIRATORY DISTRESS NOTED BREATHS SOUNDS CLEAR BILATERAL WITH GOOD AERATION THROUGHOUT GOOD AIRWAY PATENT
--- NOTE | 2016-10-27 21:59 | NUR ---
PATIENT RESTING IN BED, NO CHANGE IN VENT SETTINGS. NO RESPIRATORY DISTRESS, SOB, OR DISCOMFORT. PATIENT OPENS EYES SPONTANEOUSLY, NON-VERBAL. CALL LIGHT LEFT WITHIN REACH, WILL CONTINUE TO MONITOR.
--- NOTE | 2016-10-27 23:24 | NUR ---
AWAKE STABLE NO SOB NOTED BREATH SOUNDS RHONCHI LEFT SIDE DECREASED RIGHT SIDE GOOD CHEST RISE PRE AND POST OXYGENATION FOR SUCTIONING DEEP TRACHEAL SUCTION FOR MODERATE THIN PALE YELLOW SECRETIONS AIRWAY PATENT STOMA DRAINAGE SUCTION FOR MODERATE THIN CLEAR SECRETIONS
[2016-10-28] VITALS: BP 96/51
[2016-10-28] MEDS: PIPER/TAZO 3.375GM/D5W PREMIX 50 ML IV SCH ×3 (00:24→11:37)
--- NOTE | 2016-10-28 00:51 | NUR ---
PATIENT IN BED, SLEEPING. NO CHANGE IN VENT SETTING. NO RESPIRATORY DISTRESS, SOB, OR DISCOMFORT. PATIENT OPENS EYES SPONTANEOUSLY, NON-VERBAL. CALL LIGHT LEFT WITHIN REACH, WILL CONTINUE TO MONITOR.
[2016-10-28] MEDS: ALBUTEROL SULFATE/IPRATROPIU 3 ML SOL IH SCH ×3 (00:57→12:42)
--- NOTE | 2016-10-28 00:57 | NUR ---
AWAKE NO EVIDENCE OF PULMONARY DISTRESS NOTED TOLERATING VENTILATOR WELL WITHOUT INCIDENT BREATH SOUNDS RHONCHI BILATERAL GOOD CHEST RISE PRE AND POST OXYGENATION FOR SUCTIONING DEEP TRACHEAL SUCTION FOR SMALL THIN PALE YELLOW SECRETIONS AIRWAY PATENT
--- NOTE | 2016-10-28 03:07 | NUR ---
PATIENT RESTING IN BED. AWAKE, NONVERBAL. NO CHANGE IN VENT SETTINGS. TOLERATING WELL. NO RESPIRATORY DISTRESS, SOB, OR DISCOMFORT. CALL LIGHT LEFT WITHIN REACH, WILL CONTINUE TO MONITOR.
--- NOTE | 2016-10-28 03:53 | NUR ---
AWAKE STABLE BREATH SOUNDS RHONCHI BILATERAL GOOD CHEST RISE PRE AND POST OXTGENATION FOR SUCTIONING DEEP TRACHEAL SUCTION FOR LARGE THIN PALE YELLOW SECRETIONS AIRWAY PATENT
[2016-10-28 04:00] VITALS: BP 113/61
[2016-10-28] MEDS: LEVOTHYROXINE 0.075 MG TAB GT SCH (05:37)
--- NOTE | 2016-10-28 05:55 | NUR ---
AWAKE RESTING WELL NO EVIDENCE OF PULMONARY DISTRESS NOTED BREATH SOUNDS RHONCHI BILATERAL WITH GOOD CHEST RISE PRE AND POST OXYGENATION GIVEN FOR SUCTIONING DEEP TRACHEAL SUCTION FOR MODERATE THIN PALE YELLOW SECRETIONS AIRWAY PATENT
--- NOTE | 2016-10-28 06:04 | NUR ---
PATIENT RESTING. NO CHANGE TO VENT SETTINGS. PATIENT OPENS EYES SPONTANEOUSLY, NONVERBAL. NO RESPIRATORY DISTRESS, SOB, OR DISCOMFORT. CALL LIGHT LEFT WITHIN REACH, WILL CONTINUE TO MONITOR.
--- NOTE | 2016-10-28 07:05 | NUR ---
REPORT GIVEN TO DAY NURSEJONATHAN. PATIENT RESTING IN BED, STABLE. NO RESPIRATORY DISTRESS, SOB, OR DISCOMFORT. ALL NEEDS ATTENDED TO DURING SHIFT, CALL LIGHT LEFT WITHIN REACH.
--- NOTE | 2016-10-28 07:17 | NUR ---
RECEIVED TRACH PT EQUIPPED WITH A SHILEY 7 XLT.VENT SETTINGS AC 12, VT 400, PEEP 5 AND FIO2 30%. PT IS NOT SOB AND NOT IN RESPIRATORY DISTRESS. PT SUCTIONED OBTAINED SMALL AMOUNT OF WHITE/YELLOW SECRETIONS, AIRWAY IS PATENT, TRACH IS SECURE. VENT ALARMS ARE ON AND FUNCTIONING. VENT IS PLUGGED INTO RED OUTLET WITH AMBU BAG PRESENT AT BEDSIDE. WILL CONTINUE TO MONITOR.
--- NOTE | 2016-10-28 07:20 | NUR ---
RECEIVED REPORT FROM THE NIGHTSHIFT NURSE AT BEDSIDE FOR CONTINUITY OF CARE. PT IS AWAKE. EYES OPEN, NOT TRACKING ME. PT IS APHASIC. NOTED THE GT TUBE FEEDING AT 30ML, PT IS ON TRACH TO VENT : FIOS 30% TV 400; RESP 12; PEEK 5. HE HAD SOFT MITTENS BOTH HANDS; SCD'S. HAS SUPRA PUBIC CATH, DRAINING YELLOW CLEAR URINE. IV R FA 20G, NS 60ML. SKIN INTACT. JUST OLD SCARS. WILL CONTINUE TO MONITOR PT.
[2016-10-28] MEDS: NACL 0.9% 1,000 ML IV SCH (07:21)
--- NOTE | 2016-10-28 07:55 | NUR ---
V/S SIGNS WITHIN NORMAL RANGE. WILL COME BACK WITH MORNING MEDS LATER. WILL CONTINUE TO MONITOR PT.
[2016-10-28 08:00] VITALS: BP 113/61
[2016-10-28] MEDS: LACTOBACILLUS RHAMNOSUS GG 1 EACH CAP GT SCH (08:55)
[2016-10-28] MEDS: levETIRAcetam 100 MG/ML ORASYR GT SCH (08:55)
[2016-10-28] MEDS: PANTOPRAZOLE 40 MG INJ VIAL IVP SCH (08:55)
[2016-10-28] MEDS: BETHANECHOL 5 MG TAB GT SCH (08:56)
[2016-10-28] MEDS: THEOPHYLLINE 80 MG/15 ML GT SCH (08:57)
--- NOTE | 2016-10-28 08:57 | NUR ---
HERE TO GIVE PT MORNING MEDS. TURNED OFF FEEDING MACHINE. CHECKED FOR PLACEMENT, CHECKED FOR RESIDUAL, CHECK FOR PATENCY. CRUSHED MEDS AND ADMINISTERED MEDS TO GRAVITY. FLUSHED WITH WATER. PT TOLERATED WELL. WILL CONTINUE TO MONITOR PT. CHANGED THE FEEDING BAG. ALL SAFETY MEASURE IN PLACE. FEEDING TURNED BACK ON. WILL CONTINUE TO MONITOR PT.
--- NOTE | 2016-10-28 09:00 | NUR ---
ADMINISTERED MORNING MEDS. PT TOLERATED WELL. MET ALL NEEDS AT THIS TIME. WILL CONTINUE TO MONITOR PT. Addendum: 10/28/16 at 1054 by Katie Evans RN WRONG PT.
--- NOTE | 2016-10-28 10:20 | NUR ---
IS HERE. WANTED TO KNOW WHAT THE HAD SAID. WILL LOOK INTO IT AND LET HER KNOW. PT HAS NO COMPLAINTS. NO SIGNS OF DISTRESS. WILL CONTINUE TO MONITOR PT. Addendum: 10/28/16 at 1054 by Katie Evans RN WRONG PT.
--- NOTE | 2016-10-28 10:50 | NUR ---
HEART RATE DOWN TO 47. BROUGHT HIS HOB HIGHER, WOKE PT UP FROM SLEEP. HR WENT UP TO 60. STABLE AT47-55. WILL CONTINUE TO MONITOR PT.
[2016-10-28 12:00] VITALS: BP 116/71
--- NOTE | 2016-10-28 12:18 | NUR ---
PT IS AWAKE. HR MUCH BETTER AND STEADY AT 62 -66. PT TENDS TO BE BRADYCARDIA WHEN SLEEPING. O2 SAT IS FINE. ALL SAFETY MEASURES IN PLACE. WILL CONTINUE TO MONITOR PT.
--- NOTE | 2016-10-28 13:12 | NUR ---
PT IS AWAKE. NO SIGNS OF DISTRESS. O2 SAT IS AT 100 AND HR AT 67. NO SIGNS OF DISTRESS. WILL CONTINUE TO MONITOR PT.
[2016-10-28 13:23] VITALS: BP 116/71
--- NOTE | 2016-10-28 14:30 | NUR ---
GAVE FULL REPORT TO YAMILE HARRIS AT [facility] [place]. [facility] WILL BE COMING HERE AT 1500 FOR CORPORATE LEGAL MANAGER. WILL START PREPPING PT AND FINISH UP D/C PROCESS.
--- NOTE | 2016-10-28 14:50 | NUR ---
[facility] IS HERE. GAVE REPORT TO THE TRANSPORTER. THERE ARE 3 TRANSPORTERS HERE TO TAKE PT BACK TO FACILITY. THEY GATHERING PT AND PERSONAL BELONGINGS.
--- NOTE | 2016-10-28 15:08 | NUR ---
PT IS LEAVING WITH THE TRANSPORTERS W/ ALL PERSONAL BELONGINGS. PT IN STABLE CONDITION.
== END 2016-10-28 15:08 | DRG 207 ==
LOC: MED 15:33 → MIC 17:03 → MTU 10-26 11:00
PROVIDERS: ADMIT Student in an Organized Health Care Education/Training Program; ATTEND Student in an Organized Health Care Education/Training Program
PROC: 5A1955Z Respiratory Ventilation, Greater than 96 Consecutive Hours (ICD-10-PCS; principal; 2016-10-22)
PROC: 0B21XFZ Change Tracheostomy Device in Trachea, External Approach (ICD-10-PCS; 2016-10-22)
DX: J95.03 Malfunction of tracheostomy stoma (principal); J96.21 Acute and chronic respiratory failure with hypoxia; N17.0 Acute kidney failure with tubular necrosis; E43 Unspecified severe protein-calorie malnutrition; J69.8 Pneumonitis due to inhalation of other solids and liquids; K85.90 Acute pancreatitis without necrosis or infection, unspecified; N39.0 Urinary tract infection, site not specified; L89.151 Pressure ulcer of sacral region, stage 1; G40.909 Epilepsy, unspecified, not intractable, without status epilepticus; E03.9 Hypothyroidism, unspecified; R13.10 Dysphagia, unspecified; J98.2 Interstitial emphysema; N18.9 Chronic kidney disease, unspecified; E83.39 Other disorders of phosphorus metabolism; Y83.8 Other surgical procedures as the cause of abnormal reaction of the patient, or of later complication, without mention of misadventure at the time of the procedure; Y82.8 Other medical devices associated with adverse incidents; Q90.9 Down syndrome, unspecified; Z88.1 Allergy status to other antibiotic agents; Z79.899 Other long term (current) drug therapy; Z68.28 Body mass index [BMI] 28.0-28.9, adult; Z86.73 Personal history of transient ischemic attack (TIA), and cerebral infarction without residual deficits
CPT/HCPCS: 36415; 36600; 71010; 80048; 80053; 80198; 81001; 82150; 82803; 83036; 83690; 83735; 83880; 84100; 84439; 84443; 84484; 85025; 85610; 85730; 87040; 87070; 87077; 87081; 87086; 87186; 87205; 89220; 90732; 93005; 94002; 94003; 94640; 99291; C9113; J2270; J2543; J7030; J7060; J7613; J7620; J7644; Q0092